=== PATIENT | male | born 1955 | race Caucasian/White ===

== ENCOUNTER 2022-06-11 21:09 | Emergency (ER) | payer BC ==
[2022-06-11] MEDS ORDERED: Cephalexin 500 MG Cap PO STA (22:23)
[2022-06-11] MEDS ORDERED: Diphtheria,Pertussis(Acell),Tetanus Vaccine 0.5 ML Syringe IM ONE (22:23)
== END 2022-06-11 23:05 | disposition home or self-care (01) ==
LOC: FB.ED 21:09
DX: S61.217A Laceration without foreign body of left little finger without damage to nail, initial encounter (principal); Z23 Encounter for immunization; W18.09XA Striking against other object with subsequent fall, initial encounter; W26.8XXA Contact with other sharp object(s), not elsewhere classified, initial encounter
CPT/HCPCS: 12001; 73140-F4; 90471; 90715; 99282-25; A9270-GY